=== PATIENT | male | born 1965 | race Caucasian/White ===

== ENCOUNTER → 2022-02-13 | Outpatient (CLI) | payer MEDICARE ==
[~2022-02-13] MED LIST: DECADRON4 MG PO
== END ==
LOC: KOH-I 15:24
DX: M79.672 Pain in left foot (principal); M79.671 Pain in right foot; M19.071 Primary osteoarthritis, right ankle and foot; M19.072 Primary osteoarthritis, left ankle and foot
CPT/HCPCS: 73630